=== PATIENT | female | born 1995 ===

== ENCOUNTER 2022-08-23 00:11 | Inpatient (IN) | payer BC ==
[2022-08-23] MEDS ORDERED: Sodium Chloride 0.9% 2.5 ML Syringe FLUSH PRN (00:47)
[2022-08-23] MEDS ORDERED: Terbutaline 1 MG/ML SDV SUBCUT PRN (00:47)
[2022-08-23] MEDS ORDERED: Butorphanol 1 MG/ML SDV IVPUSH PRN (00:47)
[2022-08-23] MEDS ORDERED: Lidocaine 1% 50 ML MDV INJECT PRN (00:47)
[2022-08-23] MEDS ORDERED: Methylergonovine 0.2 MG/1 ML Amp IM PRN (00:47)
[2022-08-23] MEDS ORDERED: Water For Irrigation,Sterile 1,000 ML Container IRR PRN (00:47)
[2022-08-23] MEDS ORDERED: Tranexamic Acid 1,000 MG in Sodium Chloride 0.9% 100 ML IV PRN (00:47)
[2022-08-23] MEDS ORDERED: Carboprost Tromethamine 250 MCG/1 ML Amp IM PRN (00:47)
[2022-08-23] MEDS ORDERED: Sodium Chloride 0.9% 10 ML Syringe FLUSH PRN (00:47)
[2022-08-23] MEDS ORDERED: Sodium Chloride 0.9% 20 ML SDV IV PRN (00:47)
[2022-08-23] MEDS ORDERED: Misoprostol 200 MCG Tab PO PRN (00:47)
[2022-08-23] MEDS ORDERED: Ondansetron 4 MG/2 ML SDV IVPUSH PRN (00:47)
[2022-08-23] MEDS ORDERED: Misoprostol 25 MCG (1/4 of 100 MCG) Tab VAG PRN (01:00)
[2022-08-23] MEDS ORDERED: Oxytocin/0.9 % Sodium Chloride 30 UNIT/500 ML BAG IV SCH (01:00)
[2022-08-23] MEDS: Lactated Ringers 1,000 ML IV SCH ×3 (01:15→10:26)
[2022-08-23] MEDS: Misoprostol 25 MCG (1/4 of 100 MCG) Tab VAG PRN ×2 (05:51→09:59)
[2022-08-23] MEDS ORDERED: Dexmedetomidine 200 MCG/2 ML SDV ONE (10:27)
[2022-08-23] MEDS ORDERED: Ropivacaine/PF 400 MG/200 ML PCA ONE (10:28)
[2022-08-23] MEDS ORDERED: Phenylephrine HCl 0.5 MG/5 ML AMP ONE (10:28)
[2022-08-23] MEDS ORDERED: Phenylephrine HCl 0.5 MG/5 ML AMP IVPUSH PRN (10:50)
[2022-08-23] MEDS ORDERED: ePHEDrine 50 MG/ML SDV IVPUSH PRN ×2 (10:50)
[2022-08-23] MEDS ORDERED: Ropivacaine HCl/PF 400 MG in Premix Bag 1 BAG EPIDUR SCH (11:00)
[2022-08-23] MEDS ORDERED: Bisacodyl 10 MG Supp RECTAL PRN (12:12)
[2022-08-23] MEDS ORDERED: Acetaminophen 500 MG Tab PO PRN (12:12)
[2022-08-23] MEDS ORDERED: Docusate Sodium 100 MG Cap PO PRN (12:12)
[2022-08-23] MEDS ORDERED: Ibuprofen 800 MG Tab PO PRN (12:12)
[2022-08-23] MEDS ORDERED: oxyCODONE 5 MG Tab PO PRN (12:12)
[2022-08-23] MEDS ORDERED: Benzocaine/Menthol 20%-0.5% Spray 78 GM Cannister TOP PRN (12:12)
[2022-08-23] MEDS ORDERED: Lanolin 100% Cream 7 GM Tube TOP PRN (12:12)
[2022-08-23] MEDS ORDERED: Ibuprofen 400 MG Tab PO PRN (12:12)
[2022-08-23] MEDS ORDERED: Witch Hazel Medicated Pads 40/Jar TOP PRN (12:12)
[2022-08-23] MEDS: Acetaminophen 500 MG Tab PO PRN (16:19)
[2022-08-24] MEDS: Acetaminophen 500 MG Tab PO PRN (07:47)
== END 2022-08-24 15:33 | disposition home or self-care (01) | DRG 560 ==
LOC: MW.OBCHECK 00:11 → MW.OB 00:12 → MW.OBCHECK 00:57 → OBSVTOIN 04:35 → MW.OB 15:12
PROVIDERS: ADMIT Obstetrics & Gynecology; ATTEND Obstetrics & Gynecology
PROC: 10E0XZZ Delivery of Products of Conception, External Approach (ICD-10-PCS; principal; 2022-08-23)
PROC: 3E033VJ Introduction of Other Hormone into Peripheral Vein, Percutaneous Approach (ICD-10-PCS; 2022-08-23)
PROC: 3E0R3BZ Introduction of Anesthetic Agent into Spinal Canal, Percutaneous Approach (ICD-10-PCS; 2022-08-23)
PROC: 00HU33Z Insertion of Infusion Device into Spinal Canal, Percutaneous Approach (ICD-10-PCS; 2022-08-23)
PROC: 3E0P7VZ Introduction of Hormone into Female Reproductive, Via Natural or Artificial Opening (ICD-10-PCS; 2022-08-23)
DX: O80 Encounter for full-term uncomplicated delivery (principal); Z37.0 Single live birth; Z3A.39 39 weeks gestation of pregnancy
CPT/HCPCS: 36415; 59025; 82803; 85014; 85018; 85027; 86592; 86850; 86900; 86901; A9270-GY; J2370; J2795; J3490; J7120